=== PATIENT | female | born 1945 | race Caucasian/White ===

== ENCOUNTER 2017-05-06 07:50 | Emergency (ER) | payer MEDICARE, BC ==
[2017-05-06] MEDS ORDERED: Nitroglycerin 0.4 MG TAB (25 Tab Bottle) ONE (07:59)
[2017-05-06] MEDS ORDERED: Ondansetron HCl/PF 4 MG/2 ML Vial ONE (08:15)
[2017-05-06 08:19] LABS: #Basophils 0.1 thou/uL (0.0-0.2); #Eosinphils 0.1 thou/uL (0.0-0.7); #Lymphocytes 1.3 thou/uL (1.20-3.40); #Monocytes 0.4 thou/uL (0.11-0.59); %Basophils 1.2 % (0.0-1.0); %Eosinophils 2.6 % (0.0-10.0); %Lymphocytes 27.2 % (21.0-51.0); %Monocytes 8.2 % (0.0-10.0); %Neutrophils 60.7 % (42.0-75.0); Hemoglobin 14.4 g/dL (12.0-16.0); Mean Corpuscular HGB CONC 34.7 g/dL (32.0-36.0); Mean Corpuscular Hemoglobin 29.8 pg (27.0-31.0); Mean Corpuscular Volume 86.1 fl (81.0-99.0); Mean Platelet Volume 6.5 fL (7.4-10.4); Platelet Count 198 thou/uL (130-400); RBC Distribution Width 12.4 % (11.5-14.5); Red Blood Cell (RBC) Count 4.84 mill/uL (4.20-5.40); White Blood Cell (WBC) Count 4.9 thou/uL (4.8-10.8)
[2017-05-06 08:23] LABS: INR-International Normal Ratio 1.1; PTT 28.5 SEC (22.9-36.1); Prothrombin Time 14.3 SEC (12.0-14.7)
[2017-05-06 08:33] LABS: ALT (SGPT) 55 U/L (8-55); AST (SGOT) 84 U/L (5-34); Albumin 4.3 g/dL (3.4-4.8); Alkaline Phosphatase 115 U/L (40-150); Anion Gap 15 mmol/L (10-20); BUN (Urea Nitrogen) 11 mg/dL (9.8-20.1); Bilirubin, Total 0.9 mg/dL (0.2-1.2); Calc. Creatinine Clearance 0 mL/min (70-130); Calcium 8.9 mg/dL (7.8-10.44); Carbon Dioxide 22 mmol/L (23-31); Chloride 106 mmol/L (98-107); Estimated GFR-MDRD 64; Globulin 2.7 g/dL (2.4-3.5); Glucose 141 mg/dL (83-110); Lipase 28 U/L (8-78); Potassium 4.3 mmol/L (3.5-5.1); Sodium 139 mmol/L (136-145)
[2017-05-06 08:35] LABS: CKMB 1.9 ng/mL (0-6.6); Troponin I Less than 0.010 ng/mL (< 0.028)
--- NOTE | 2017-05-06 19:24 | RAD ---
PORTABLE CHEST 05/06/17 An AP portable film at 0803 is compared with a 04/06/15 study done at [place] in [place]. The patient is turned which distorts the chest somewhat. There does appear to be some streaking in t he lower lobes bilaterally that could be a combination of scarring or atelectasis. Some streaking wa s seen on the 2015 film in the left lower lobe. No large effusions were seen. The upper lobes are cl ear. There does not appear to be vascular congestion or cardiomegaly. IMPRESSION: Bibasilar streaking, much of which may be chronic. If symptoms continue, a followup better centered PA and lateral view might be helpful. POS: HOME
== END 2017-05-06 09:30 | disposition short-term general hospital (02) ==
LOC: BURERS 07:50
DX: A08.4 Viral intestinal infection, unspecified (principal); E78.5 Hyperlipidemia, unspecified; I10 Essential (primary) hypertension; K21.9 Gastro-esophageal reflux disease without esophagitis
CPT/HCPCS: 71010; 80053; 82553; 83690; 84484; 85025; 85610; 85730; 93005; 94760; 96374; J2405

== ENCOUNTER 2021-01-10 09:11 | Inpatient (IN) | payer MEDICARE, BC ==
[2021-01-10 09:46] LABS: Hemoglobin 13.7 g/dL (12.0-16.0); Mean Corpuscular HGB CONC 32.5 g/dL (32.0-36.0); Mean Corpuscular Hemoglobin 29.3 pg (27.0-31.0); Mean Corpuscular Volume 90.1 fL (78.0-98.0); Mean Platelet Volume 7.4 fL (7.4-10.4); Platelet Count 231 thou/uL (130-400); RBC Distribution Width 11.2 % (11.5-14.5); Red Blood Cell (RBC) Count 4.69 mill/uL (4.20-5.40); White Blood Cell (WBC) Count 14.9 thou/uL (4.8-10.8)
[2021-01-10 09:58] LABS: ALT (SGPT) 20 U/L (8-55); AST (SGOT) 23 U/L (5-34); Albumin 3.9 g/dL (3.4-4.8); Alkaline Phosphatase 108 U/L (40-110); Anion Gap 16 mmol/L (10-20); BUN (Urea Nitrogen) 15 mg/dL (9.8-20.1); Calc. Creatinine Clearance 0 mL/min (70-130); Calcium 8.9 mg/dL (7.8-10.44); Carbon Dioxide 23 mmol/L (23-31); Chloride 101 mmol/L (98-107); Globulin 3.3 g/dL (2.4-3.5); Glucose 162 mg/dL (83-110); Protein, Total 7.2 g/dL (5.8-8.1); Sodium 136 mmol/L (136-145)
[2021-01-10 10:03] LABS: Band 31 % (5-11); Lymphocytes 8 % (21-51); MDiff Complete? YES; Monocytes 10 % (0-10); Neutrophil 50 % (42-75); Reactive Lymphocytes 1 % (0-10)
[2021-01-10] MEDS ORDERED: cefTRIAXone\\ROCEPHIN 2 GM VIAL ONE (10:11)
[2021-01-10] MEDS ORDERED: Ondansetron ODT 4 MG TAB PO PRN (11:13)
[2021-01-10] MEDS ORDERED: Ondansetron PF 4 MG/2 ML Vial IVP PRN (11:13)
[2021-01-10] MEDS ORDERED: Acetaminophen 325 MG TAB PO PRN (11:14)
[2021-01-10] MEDS ORDERED: Albuterol Sulfate 2.5 mg/3 ml Neb NEB PRN (11:15)
[2021-01-10 12:12] VITALS: BMI 20.4
[2021-01-10] MEDS: Sodium Chloride 0.45% 1,000 ML IV SCH (12:33)
[2021-01-10] MEDS ORDERED: Bisacodyl 5 MG TAB PO PRN (14:04)
--- NOTE | 2021-01-10 14:09 | RAD ---
PORTABLE CHEST: 01/10/21 An AP portable film at 0945 shows a right lower lobe infiltrate consistent with a developing pneumoni a. The lungs are otherwise clear. There are no large effusions. The heart is normal in size. There is no vascular congestion or edema. Faint calcification is seen in the aortic arch. IMPRESSION: Right lower lobe pneumonia. POS: HOME
--- NOTE | 2021-01-10 15:48 | PDOC.H&P ---
- History & Physical Encounter Time: 01/10/21 75 yo female with 3 week history URI and cough, non-smoker, that developed fever and body aches 2 days ago. [facility]. Here COVID-19 PCR and CXR were both negative, she was diagnosed with cough/bronchitis, and prescribed azithromycin, which she has taken as directed. This morning, she presented to [facility] ER with worsening dyspnea and cough with post-tussive emesis x 1 episode. Her oxygen saturation on room air was 90%, improved to 93% on 2 liters oxygen per cannula. Repeat CXR was positive for developing RLL infiltrate, and so she will be admitted for non-covid Pneumonia. Review of Systems - Review of Systems Constitutional: fever, chills, sweats, weakness, malaise, other ENT: other. negative: ear pain, ear discharge, nose congestion, throat pain Respiratory: cough, shortness of breath, pleuritic pain, sputum Cardiovascular: negative: chest pain, palpitations, orthopnea, edema Gastrointestinal: vomiting. negative: nausea, abdominal pain, diarrhea, constipation Genitourinary: negative: dysuria, frequency, incontinence Skin: negative: rash Neurological: negative: weakness, confusion, seizures - Medications/Allergies Allergies/Adverse Reactions: Allergies Allergy/AdvReac Type Severity Reaction Status Date / Time No Known Drug Allergies Allergy Verified 02/19/20 08:57 Medications: Current Medications
--- NOTE | 2021-01-10 16:50 | PDOC.HHP ---
Hospitalist HPI Cough, Fever History of Present Illness: 75 yo non-smoking female with 3 week history URI and cough developed fever and body aches 2 days ago. She was seen in [facility] on 01/08/21, COVID-19 PCR and CXR were both negative. She was diagnosed with cough/bronchitis, and prescribed azithromycin, which she has taken as directed since. This morning, she presented to [facility] ER with worsening dyspnea, cough, and post-tussive emesis. Her oxygen saturation on room air was 90%, improved to 93% on 2 liters oxygen per cannula. Repeat CXR was positive for developing RLL infiltrate, and so she is admitted for non-covid Pneumonia. 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 Allergies/Adverse Reactions: Allergy/AdvReac Type Severity Reaction Status Date / Time No Known Drug Allergies Allergy Verified 01/10/21 16:59 Home Medications: Medication Instructions Recorded Confirmed Type Atorvastatin Calcium [Lipitor] 10 mg PO QPM 05/06/17 01/10/21 History Amlodipine Besylate [amLODIPine 5 mg PO DAILY 01/10/21 01/10/21 History Besylate] metFORMIN HCl [Metformin HCl] 1 tab PO BID 01/10/21 01/10/21 History Past History: PMHx:DMT2, Hypertension, Hyperlipidemia, GERD PSHx Cholecystectomy, Left ankle repair, Negative Cardiolyte Stress/MPI 05/06/17 FHx:Non-contributory Social: , lives with her in [place], works at a local daycare. Non-smoker, no ETOH, no recreational drugs Hospitalist HPI ROS Constitutional: reports: fever. denies: chills, sweats, weakness, malaise, other ENT: denies: ear pain, nose discharge, nose congestion, throat pain Respiratory: reports: cough, shortness of breath, SOB with excertion, pleuritic pain, sputum Cardiovascular: denies: chest pain, palpitations, orthopnea, paroxysmal noc. dyspnea, edema, light headedness, other Gastrointestinal: reports: vomiting. denies: nausea, abdominal pain, diarrhea, constipation, melena, hematochezia, other Genitourinary: reports: other. denies: dysuria, frequency, incontinence, hematuria, retention Skin: denies: rash, lesions, dioni, bruising, other Neurological: denies: weakness, numbness, incoordination, change in speech, confusion, seizures, other Hospitalist Exam Vitals: Vital Signs (12 hours) Temp Pulse Resp BP Pulse Ox 01/10/21 14:13 62 20 96 01/10/21 14:04 96 01/10/21 11:44 94 L 01/10/21 10:59 97.7 F 82 20 105/53 L 94 L 01/10/21 10:42 97.7 F 82 20 105/53 L 94 L Weight Admit Weight 134 lb 7.712 oz Weight 134 lb 7.712 oz General Appearance: NAD, awake alert Eye: PERRL, anicteric sclera ENT: normocephalic atraumatic, moist mucosa Neck: supple, symmetric, no JVD, no thyromegaly Heart: RRR, no murmur, no gallops, no rubs, normal peripheral pulses Respiratory: no wheezes, normal chest expansion, rales, rhonchi Respiratory - other findings: unlabored room air, bibasilar rhonchi clear partially with loose cough Gastrointestinal: soft, non-tender, non-distended, normal bowel sounds, no palpable masses, no hepatomegaly, no splenomegaly Extremities: no cyanosis, no clubbing, no edema Skin: normal turgor, no lesions, no rashes Neurological: cranial nerve grossly intact Neurological - other findings: normal motor function Musculoskeletal: normal tone, normal strength, no muscle wasting Psychiatric: normal affect, A&O x 3 Hospitalist Results Result Diagrams: 01/10/21 09:30 01/10/21 09:30 Lab results: Laboratory Last Values WBC 14.9 thou/uL (4.8-10.8) H 01/10/21 09:30 RBC 4.69 mill/uL (4.20-5.40) 01/10/21 09:30 Hgb 13.7 g/dL (12.0-16.0) 01/10/21 09:30 Hct 42.3 % (36.0-47.0) 01/10/21 09:30 MCV 90.1 fL (78.0-98.0) 01/10/21 09:30 MCH 29.3 pg (27.0-31.0) 01/10/21 09:30 MCHC 32.5 g/dL (32.0-36.0) 01/10/21 09:30 RDW 11.2 % (11.5-14.5) L 01/10/21 09:30 Plt Count 231 thou/uL (130-400) 01/10/21 09:30 MPV 7.4 fL (7.4-10.4) 01/10/21 09:30 Neutrophils % (Manual) 50 % (42-75) 01/10/21 09:30 Band Neuts % (Manual) 31 % (5-11) H 01/10/21 09:30 Lymphocytes % (Manual) 8 % (21-51) L 01/10/21 09:30 Reactive Lymphs % 1 % (0-10) 01/10/21 09:30 Monocytes % (Manual) 10 % (0-10) 01/10/21 09:30 Lymphocytes # Not Reportable 01/10/21 09:30 Sodium 136 mmol/L (136-145) 01/10/21 09:30 Potassium 4.0 mmol/L (3.5-5.1) 01/10/21 09:30 Chloride 101 mmol/L (98-107) 01/10/21 09:30 Carbon Dioxide 23 mmol/L (23-31) 01/10/21 09:30 Anion Gap 16 mmol/L (10-20) 01/10/21 09:30 BUN 15 mg/dL (9.8-20.1) 01/10/21 09:30 Creatinine 0.97 mg/dL (0.6-1.1) 01/10/21 09:30 Estimated GFR (MDRD) 56 01/10/21 09:30 Glucose 162 mg/dL (83-110) H 01/10/21 09:30 Lactic Acid 1.7 mmol/L (0.5-2.2) 01/10/21 09:30 Calcium 8.9 mg/dL (7.8-10.44) 01/10/21 09:30 Total Bilirubin 1.0 mg/dL (0.2-1.2) 01/10/21 09:30 AST 23 U/L (5-34) 01/10/21 09:30 ALT 20 U/L (8-55) 01/10/21 09:30 Alkaline Phosphatase 108 U/L (40-110) 01/10/21 09:30 Serum Total Protein 7.2 g/dL (5.8-8.1) 01/10/21 09:30 Albumin 3.9 g/dL (3.4-4.8) 01/10/21 09:30 Globulin 3.3 g/dL (2.4-3.5) 01/10/21 09:30 Albumin/Globulin Ratio 1.2 g/dL (1.2-2.2) 01/10/21 09:30 Hospitalist H&P A/P (1) Pneumonia Code(s): J18.9 - PNEUMONIA, UNSPECIFIED ORGANISM Status: Acute Qualifiers: Pneumonia type: due to unspecified organism Laterality: right (2) Hypertension Code(s): I10 - ESSENTIAL (PRIMARY) HYPERTENSION Status: Chronic Qualifiers: Hypertension type: essential hypertension Qualified Code(s): I10 - Essential (primary) hypertension Assessment and Plan: continue Amlodipine, monitor (3) Diabetes mellitus Code(s): E11.9 - TYPE 2 DIABETES MELLITUS WITHOUT COMPLICATIONS Status: Chronic Qualifiers: Diabetes mellitus type: type 2 Diabetes mellitus long wall shear operator insulin use: without long wall shear operator use Diabetes mellitus complication status: without complication Qualified Code(s): E11.9 - Type 2 diabetes mellitus without complications Assessment and Plan: Continue Metformin, Carbohydrate controlled diet Plan: Continue Rocephin, Azithromycin, Albuterol Nebs, consider ICS and/or Oral or IV Steroids depending on patient's progress
[2021-01-10] MEDS: Atorvastatin Calcium 10 MG TAB PO SCH (20:09)
[2021-01-10] MEDS: metFORMIN 500 MG TAB PO SCH (20:09)
[2021-01-10] MEDS: Guaifenesin DM 100-10/5 ML UDCUP PO PRN (22:11)
[2021-01-10] MEDS: Acetaminophen 325 MG TAB PO PRN (22:11)
[2021-01-11] MEDS: Sodium Chloride 0.45% 1,000 ML IV SCH ×2 (00:02→13:29)
[2021-01-11] MEDS: Enoxaparin Sodium 40 MG/0.4 ML SYRINGE SC SCH (09:17)
[2021-01-11] MEDS: Azithromycin 250 MG TAB PO SCH (09:18)
[2021-01-11] MEDS: Amlodipine 5 MG TAB PO SCH (09:18)
[2021-01-11] MEDS: metFORMIN 500 MG TAB PO SCH ×2 (09:18→21:26)
[2021-01-11] MEDS: cefTRIAXone\\ROCEPHIN 1 GM in Sodium Chloride 0.9% 100 ML IVPB SCH (11:56)
--- NOTE | 2021-01-11 13:05 | PDOC.HOSPP ---
- Subjective Encounter Date: 01/11/21 Encounter Time: 10:00 Subjective: Didnt sleep, lots of coughing, cough medication and nebulizers helped some. - Objective Vital Signs & Weight: Vital Signs (12 hours) Temp Pulse Resp BP BP Pulse Ox 01/11/21 10:00 98.4 F 86 20 124/60 97 01/11/21 09:18 84 117/76 01/11/21 08:00 97 01/11/21 06:13 84 20 97 01/11/21 05:54 98.2 F 87 18 117/58 L 95 01/11/21 01:37 97.5 F L 86 20 127/61 95 01/11/21 01:33 86 20 95 Weight Admit Weight 134 lb 7.712 oz Weight 134 lb 7.712 oz I&O: 01/10/21 01/11/21 01/12/21 06:59 06:59 06:59 Intake Total 1860 Balance 1860 Result Diagrams: 01/10/21 09:30 01/10/21 09:30 Radiology Reviewed by me: Yes (RLL infiltrate) Hospitalist ROS - Review of Systems Constitutional: denies: fever, chills, sweats, weakness, malaise, other Respiratory: reports: cough, shortness of breath, pleuritic pain, sputum Cardiovascular: denies: chest pain, palpitations, orthopnea, paroxysmal noc. dyspnea, edema, light headedness, other Gastrointestinal: denies: nausea, vomiting, abdominal pain, diarrhea, constipation Neurological: denies: weakness, numbness, incoordination, change in speech, confusion, seizures, other - Medication Medications: Active Medications Generic Name Dose Route Start Last Admin Trade Name Freq PRN Reason Stop Dose Admin Acetaminophen 650 mg 01/10/21 14:04 01/10/21 22:11 Acetaminophen 325 Mg Tab PO 650 mg Q4H PRN Administration Headache/Fever/Mild Pain (1-3) Albuterol/Ipratropium 3 ml 01/10/21 13:00 01/11/21 06:13 Ipratropium/Albuterol Sulfate 3 Ml Neb NEB 3 ml [id number] EDWIN Administration Amlodipine Besylate 5 mg 01/11/21 09:00 01/11/21 09:18 Amlodipine 5 Mg Tab PO 5 mg DAILY EDWIN Administration Atorvastatin Calcium 10 mg 01/10/21 21:00 01/10/21 20:09 Atorvastatin Calcium 10 Mg Tab PO 10 mg QPM EDWIN Administration Azithromycin 250 mg 01/11/21 09:00 01/11/21 09:18 Azithromycin 250 Mg Tab PO 01/14/21 09:01 250 mg DAILY EDWIN Administration Enoxaparin Sodium 40 mg 01/11/21 09:00 01/11/21 09:17 Enoxaparin Sodium 40 Mg/0.4 Ml Syringe SC 40 mg 0900 EDWIN Administration Guaifenesin/Dextromethorphan 15 ml 01/10/21 14:04 01/10/21 22:11 Guaifenesin Dm 100-10/5 Ml Udcup PO 15 ml Q4H PRN Administration Cough Ceftriaxone Sodium 1 gm/ 100 mls @ 200 mls/hr 01/11/21 11:00 01/11/21 11:56 Sodium Chloride IVPB 100 mls Q24HR EDWIN Administration Metformin HCl 500 mg 01/10/21 21:00 01/11/21 09:18 Metformin 500 Mg Tab PO 500 mg BID EDWIN Administration Sodium Chloride 10 ml 01/10/21 21:00 01/11/21 09:19 Flush - Normal Saline 10 Ml Syringe IVF Not Given Q12HR [facility] Hospitalist Exam Vitals: Vital Signs (12 hours) Temp Pulse Resp BP BP Pulse Ox 01/11/21 10:00 98.4 F 86 20 124/60 97 01/11/21 09:18 84 117/76 01/11/21 08:00 97 01/11/21 06:13 84 20 97 01/11/21 05:54 98.2 F 87 18 117/58 L 95 01/11/21 01:37 97.5 F L 86 20 127/61 95 01/11/21 01:33 86 20 95 Weight Admit Weight 134 lb 7.712 oz Weight 134 lb 7.712 oz General Appearance: awake alert, ill appearing General - other findings: mild exertional dyspnea Eye: PERRL, anicteric sclera ENT: normocephalic atraumatic, moist mucosa Neck: supple, symmetric, no JVD, no thyromegaly, no lymphadenopathy Heart: RRR, no murmur, normal peripheral pulses Respiratory - other findings: course rhonchi throughout, loose cough Gastrointestinal: soft, non-tender, non-distended, normal bowel sounds, no palpable masses, no hepatomegaly, no splenomegaly Extremities: no cyanosis, no clubbing, no edema Skin: normal turgor Neurological: cranial nerve grossly intact, no weakness, no focal deficits Hosp A/P (1) Pneumonia Code(s): J18.9 - PNEUMONIA, UNSPECIFIED ORGANISM Status: Acute Qualifiers: Pneumonia type: due to unspecified organism Laterality: right Lung location: lower lobe of lung Qualified Code(s): J18.9 - Pneumonia, unspecified organism Plan: Solumedrol 40 mg IVP bid, continue nebs, antibiotics (2) Hypertension Code(s): I10 - ESSENTIAL (PRIMARY) HYPERTENSION Status: Chronic Qualifiers: Hypertension type: essential hypertension Qualified Code(s): I10 - Essential (primary) hypertension (3) Diabetes mellitus Code(s): E11.9 - TYPE 2 DIABETES MELLITUS WITHOUT COMPLICATIONS Status: Chronic Qualifiers: Diabetes mellitus type: type 2 Diabetes mellitus medical terminologist insulin use: without skilled nursing use Diabetes mellitus complication status: without complication Qualified Code(s): E11.9 - Type 2 diabetes mellitus without complications
[2021-01-11] MEDS: Atorvastatin Calcium 10 MG TAB PO SCH (21:26)
[2021-01-11] MEDS: methylPREDNISolone Sod Succ/PF 125 MG/2 ML VIAL IVP SCH (21:27)
[2021-01-11] MEDS: Acetaminophen 325 MG TAB PO PRN (21:51)
[2021-01-12] MEDS: methylPREDNISolone Sod Succ/PF 125 MG/2 ML VIAL IVP SCH ×2 (09:44→21:05)
[2021-01-12] MEDS: Enoxaparin Sodium 40 MG/0.4 ML SYRINGE SC SCH (09:45)
[2021-01-12] MEDS: Azithromycin 250 MG TAB PO SCH (09:45)
[2021-01-12] MEDS: metFORMIN 500 MG TAB PO SCH ×2 (09:45→21:03)
[2021-01-12] MEDS: Amlodipine 5 MG TAB PO SCH (09:53)
[2021-01-12] MEDS: cefTRIAXone\\ROCEPHIN 1 GM in Sodium Chloride 0.9% 100 ML IVPB SCH (11:29)
[2021-01-12] MEDS ORDERED: Dextrose 50% Abboject 50 ML SYRINGE SLOW IVP PRN (12:22)
[2021-01-12] MEDS ORDERED: Dextrose 5% in Water 1,000 ML IV PRN (12:22)
--- NOTE | 2021-01-12 14:04 | PDOC.HOSPP ---
- Subjective Encounter Date: 01/12/21 Encounter Time: 13:43 Subjective: Feeling so much better, food is delicious, ready to go home, but agrees to allow additional IV antibiotic doses as indicated. She is sleeping some better, but still coughing when she talks and during Nebulizer treatments, scant clear sputum, drinking lots of water as instructed. (Spoke with patient by phone - exam and in person evaluation deferred due to inclement weather) - Objective Vital Signs & Weight: Vital Signs (12 hours) Temp Pulse Resp BP BP Pulse Ox 01/12/21 13:33 99 18 97 01/12/21 09:53 100 140/69 01/12/21 08:00 97 01/12/21 06:33 88 20 96 01/12/21 06:19 97.7 F 96 20 133/67 96 Weight Admit Weight 134 lb 7.712 oz Weight 134 lb 7.712 oz I&O: 01/11/21 01/12/21 01/13/21 06:59 06:59 06:59 Intake Total 1860 3500 Balance 1860 3500 Result Diagrams: 01/10/21 09:30 01/10/21 09:30 Additional Labs: Accuchecks 01/12/21 01/12/21 13:02 04:05 POC Glucose 183 H 222 H Hospitalist ROS - Review of Systems Constitutional: denies: fever, chills, sweats, weakness, malaise, other Respiratory: reports: shortness of breath, hemoptysis, SOB with excertion, sputum, other. denies: cough, pleuritic pain, wheezing Cardiovascular: reports: other. denies: chest pain, palpitations, orthopnea, edema Gastrointestinal: denies: nausea, vomiting, abdominal pain, diarrhea, constipation Genitourinary: reports: dysuria, frequency, incontinence, hematuria, retention, other Skin: reports: other. denies: rash, lesions, dioni, bruising Neurological: denies: weakness, numbness, incoordination, change in speech, confusion, seizures, other - Medication Medications: Active Medications Generic Name Dose Route Start Last Admin Trade Name Freq PRN Reason Stop Dose Admin Acetaminophen 650 mg 01/10/21 14:04 01/11/21 21:51 Acetaminophen 325 Mg Tab PO 650 mg Q4H PRN Administration Headache/Fever/Mild Pain (1-3) Albuterol/Ipratropium 3 ml 01/10/21 13:00 01/12/21 13:33 Ipratropium/Albuterol Sulfate 3 Ml Neb NEB 3 ml [id number] EDWIN Administration Amlodipine Besylate 5 mg 01/11/21 09:00 01/12/21 09:53 Amlodipine 5 Mg Tab PO 5 mg DAILY EDWIN Administration Atorvastatin Calcium 10 mg 01/10/21 21:00 01/11/21 21:26 Atorvastatin Calcium 10 Mg Tab PO 10 mg QPM EDWIN Administration Azithromycin 250 mg 01/11/21 09:00 01/12/21 09:45 Azithromycin 250 Mg Tab PO 01/14/21 09:01 250 mg DAILY EDWIN Administration Enoxaparin Sodium 40 mg 01/11/21 09:00 01/12/21 09:45 Enoxaparin Sodium 40 Mg/0.4 Ml Syringe SC 40 mg 0900 EDWIN Administration Guaifenesin/Dextromethorphan 15 ml 01/10/21 14:04 01/10/21 22:11 Guaifenesin Dm 100-10/5 Ml Udcup PO 15 ml Q4H PRN Administration Cough Ceftriaxone Sodium 1 gm/ 100 mls @ 200 mls/hr 01/11/21 11:00 01/12/21 11:29 Sodium Chloride IVPB 100 mls Q24HR EDWIN Administration Metformin HCl 500 mg 01/10/21 21:00 01/12/21 09:45 Metformin 500 Mg Tab PO 500 mg BID EDWIN Administration Methylprednisolone Sodium Succinate 40 mg 01/11/21 21:00 01/12/21 09:44 Methylprednisolone Sod Succ/Pf 125 Mg/2 Ml Vial IVP 01/14/21 23:59 40 mg Q12HR EDWIN Administration Sodium Chloride 10 ml 01/10/21 21:00 01/12/21 11:29 Flush - Normal Saline 10 Ml Syringe IVF 10 ml Q12HR EDWIN Administration Hospitalist Exam Vitals: Vital Signs (12 hours) Temp Pulse Resp BP BP Pulse Ox 01/12/21 13:33 99 18 97 01/12/21 09:53 100 140/69 01/12/21 08:00 97 01/12/21 06:33 88 20 96 01/12/21 06:19 97.7 F 96 20 133/67 96 Weight Admit Weight 134 lb 7.712 oz Weight 134 lb 7.712 oz Hosp A/P (1) Pneumonia Code(s): J18.9 - PNEUMONIA, UNSPECIFIED ORGANISM Status: Acute Qualifiers: Pneumonia type: due to unspecified organism Laterality: right Lung location: lower lobe of lung Qualified Code(s): J18.9 - Pneumonia, unspecified organism (2) Hypertension Code(s): I10 - ESSENTIAL (PRIMARY) HYPERTENSION Status: Chronic Qualifiers: Hypertension type: essential hypertension Qualified Code(s): I10 - Essential (primary) hypertension (3) Diabetes mellitus Code(s): E11.9 - TYPE 2 DIABETES MELLITUS WITHOUT COMPLICATIONS Status: Chronic Qualifiers: Diabetes mellitus type: type 2 Diabetes mellitus terminal computer operator insulin use: wi [facility] terminal computer operator use Diabetes mellitus complication status: without compli cation Qualified Code(s): E11.9 - Type 2 diabetes mellitus without compli cations - Plan continue antibiotics, DVT proph w/lovenox Solumedrol 40 mg IVP Q 12 X 4 DOSES STARTED Add bedside glucose monitoring q 12 with Moderate Sliding Scale Regular Insulin Encourage fluids Plan to DC Home Wednesday01/14/2021
[2021-01-12] MEDS ORDERED: Insulin Regular 300 UNITS/3 ML VIAL SC SCH (16:30)
[2021-01-12] MEDS ORDERED: Insulin Regular 300 UNITS/3 ML VIAL SC PRN (18:12)
[2021-01-12] MEDS: Atorvastatin Calcium 10 MG TAB PO SCH (21:03)
[2021-01-13] MEDS ORDERED: Insulin Regular 300 UNITS/3 ML VIAL SC SCH ×2 (07:30→11:30)
[2021-01-13] MEDS ORDERED: metFORMIN 500 MG TAB ONE (07:43)
[2021-01-13] MEDS ORDERED: Enoxaparin Sodium 40 MG/0.4 ML SYRINGE ONE (07:44)
[2021-01-13] MEDS ORDERED: methylPREDNISolone Sod Succ 40 MG VIAL ONE (07:45)
[2021-01-13] MEDS ORDERED: Amlodipine 5 MG TAB ONE (07:45)
[2021-01-13] MEDS ORDERED: cefTRIAXone\\ROCEPHIN 1 GM VIAL ONE (07:46)
[2021-01-13] MEDS: Enoxaparin Sodium 40 MG/0.4 ML SYRINGE SC SCH (09:05)
[2021-01-13] MEDS: methylPREDNISolone Sod Succ/PF 125 MG/2 ML VIAL IVP SCH (09:05)
[2021-01-13] MEDS: Azithromycin 250 MG TAB PO SCH (09:05)
[2021-01-13] MEDS: Amlodipine 5 MG TAB PO SCH (09:05)
[2021-01-13] MEDS: metFORMIN 500 MG TAB PO SCH (09:05)
[2021-01-13] MEDS: Azithromycin 250 MG TAB ONE ×2 (09:30→16:00)
[2021-01-13] MEDS: cefTRIAXone\\ROCEPHIN 1 GM in Sodium Chloride 0.9% 100 ML IVPB SCH (11:24)
[2021-01-13 14:51] LABS: Hemoglobin 11.9 g/dL (12.0-16.0); Red Blood Cell (RBC) Count 4.01 mill/uL (4.20-5.40); White Blood Cell (WBC) Count 12.1 thou/uL (4.8-10.8)
[2021-01-13 14:52] LABS: %Lymphocytes 6.2 % (21.0-51.0); %Monocytes 2.3 % (0.0-10.0); %Neutrophils 91.4 % (42.0-75.0); Manual Diff?? YES; Mean Corpuscular HGB CONC 32.8 g/dL (32.0-36.0); Mean Corpuscular Hemoglobin 29.5 pg (27.0-31.0); Mean Platelet Volume 6.6 fL (7.4-10.4); Platelet Count 260 thou/uL (130-400); RBC Distribution Width 11.5 % (11.5-14.5)
[2021-01-13 14:53] LABS: #Monocytes 0.3 thou/uL (0.11-0.59); %Basophils 0.1 % (0.0-1.0); MDiff Complete? YES
[2021-01-13 14:56] LABS: Anion Gap 17 mmol/L (10-20); BUN (Urea Nitrogen) 17 mg/dL (9.8-20.1); Calc. Creatinine Clearance 65 mL/min (70-130); Carbon Dioxide 19 mmol/L (23-31); Chloride 110 mmol/L (98-107); Glucose 168 mg/dL (83-110); Potassium 3.8 mmol/L (3.5-5.1); Sodium 142 mmol/L (136-145)
[2021-01-13 14:57] LABS: Calcium 9.1 mg/dL (7.8-10.44)
[2021-01-13] MEDS ORDERED: methylPREDNISolone Sod Succ/PF 125 MG/2 ML VIAL IVP SCH (16:30)
[2021-01-13] MEDS: Guaifenesin DM 100-10/5 ML UDCUP PO PRN (16:39)
[2021-01-13 18:27] VITALS: BP 137/63; TEMP 98.2
--- NOTE | 2021-01-13 19:12 | PDOC.DS.DS ---
Provider Date of Admission: 01/10/21 10:35 Date of Discharge: 01/13/21 Admitting Provider: Shahnaz Spangler MD Consultations: None Primary Care Physician: Reddy Graves MD Course Hospital Course: 75 yo female arrived to ER 01/10/21 for 3 day onset fever, chills, and body aches preceeded by 3 week history of cough with worsening dyspnea. The day before her admission she had been seen at [facility] and started on a z-pack. Medical record review confirms both CXR and COVID were both negative yesterday. However repeat CXR in the ER showed developing RLL infliltrate. She was admitted, started on IV Rocephin, continued Azithromycin, given IV Corticosteroids and Duo-Nebs. By day 3 she reports feeling much better and has improved enough to warrant d/c home. Exam/bedside visit deferred due to inclement weather, travel advisory. Patient information obtained by telephone conversation with patient and by nurse report. Resuscitation Status: 01/10/21 10:59 Resuscitation Status Routine Resuscitation Status: FULL: Full Resuscitation Lab Results: 01/13/21 05:00 01/13/21 05:00 Abnormal Lab Results - Last 48 hrs 01/13/21 05:00: WBC 12.1 H, RBC 4.01 L, Hgb 11.9 L, MPV 6.6 L, Neutrophils % 91.4 H, Lymphocytes % 6.2 L, Neutrophils # 11.0 H 01/13/21 05:00: Chloride 110 H, Carbon Dioxide 19 L Microbiology - Entire Visit 01/10/21 08:40 Venous blood - Left Arm Blood Culture - Preliminary NO GROWTH AT 48 HOURS 01/10/21 09:30 Venous blood - Right Arm Blood Culture - Preliminary NO GROWTH AT 48 HOURS Chest x-ray Status: report reviewed by me Additional comments: RLL developing inflitrate, no sign of pulmonary congestion Vitals: Vital Signs (12 hours) Temp Pulse Resp BP Pulse Ox 01/13/21 16:15 98.2 F 96 18 137/63 98 01/13/21 15:57 92 01/13/21 13:25 92 18 96 01/13/21 09:05 97 01/13/21 08:15 96 Weight Admit Weight 134 lb 7.712 oz Weight 134 lb 7.712 oz Physical Exam: The patient was seen and examined on the day of discharge. Problem Assessment: See patient discharge instruction sheet for detailed teaching. Patient verbalizes understanding of medications and is able to verbalize follow-up care. See Discharge Plan for additional discharge information. Patient secured in private vehicle prior to departure. Plan of Treatment: FOCUS: Transition from Acute Care after Discharge GOAL: Successful transition to care in the community YOUR TASKS: (1) review all information outlined in your discharge packet (2) follow any instructions outlined in your discharge packet (3) contact your primary care provider if you have questions or need additional assistance Health Concerns: DMT2, continue DM diet and Metformin, HTN, continue Amlodipine and Atorvastatin (1) Pneumonia Code(s): J18.9 - PNEUMONIA, UNSPECIFIED ORGANISM Status: Acute Qualifiers: Pneumonia type: due to unspecified organism Laterality: right Lung location: lower lobe of lung Qualified Code(s): J18.9 - Pneumonia, unspecified organism (2) Hypertension Code(s): I10 - ESSENTIAL (PRIMARY) HYPERTENSION Status: Chronic Qualifiers: Hypertension type: essential hypertension Qualified Code(s): I10 - Essential (primary) hypertension (3) Diabetes mellitus Code(s): E11.9 - TYPE 2 DIABETES MELLITUS WITHOUT COMPLICATIONS Status: Chronic Qualifiers: Diabetes mellitus type: type 2 Diabetes mellitus half-way insulin use: without exterminator helper termite use Diabetes mellitus complication status: without complication Qualified Code(s): E11.9 - Type 2 diabetes mellitus without complications Plan Prescriptions: ALButerol Sulfate [Ventolin Neb] 2.5 mg NEB Q4H PRN #100 neb PRN Reason: Home Medications: Medication Instructions Recorded Confirmed Type Atorvastatin Calcium [Lipitor] 10 mg PO QPM 05/06/17 01/10/21 History Amlodipine Besylate [amLODIPine 5 mg PO DAILY 01/10/21 01/10/21 History Besylate] metFORMIN HCl [Metformin HCl] 1 tab PO BID 01/10/21 01/10/21 History ALButerol Sulfate [Ventolin Neb] 2.5 mg NEB Q4H PRN #100 neb 01/13/21 Rx Allergies: No Known Drug Allergies Allergy (Verified 01/10/21 16:59) Additional comments: Prescriptions x2 sent to [facility] (from [facility] earlier today as [facility] has been down most of the day): Cefdinir 300 mg bid x 7 days #14 Albut[employer]ol [employer] for Nebulizer q 4-6 prn cough dyspnea, wheeeze Discharge Instructions:: Discharge instructions home: -Activity as tolerated -Diabetic Diet -Resume Home Meds -New prescriptions called into [facility] in [place] by Janet VALDOVINOS -Schedule post hospitalization appointment with Primary Care Physician in 1 week If you have any questions immediately following this hospital discharge, Janet VALDOVINOS has instructed to please call her directly at [phone] Activity:: Activity as Tolerated Nourishment:: Diabetic Diet Therapies:: Not Applicable Equipment/Supplies:: Not Applicable IV Therapy:: Not Applicable Referrals: Reddy Graves MD [Primary Care Provider] - 7 Days Disposition: HOME Quality CORE MEASURES:: N/A
== END 2021-01-13 16:55 | disposition home or self-care (01) | DRG 195 ==
LOC: BURERS 09:11 → BURMED 10:35
PROVIDERS: ADMIT Family Medicine; ATTEND Family Medicine
DX: J15.9 Unspecified bacterial pneumonia (principal); E78.5 Hyperlipidemia, unspecified; E78.00 Pure hypercholesterolemia, unspecified; K21.9 Gastro-esophageal reflux disease without esophagitis; I10 Essential (primary) hypertension; E11.9 Type 2 diabetes mellitus without complications; M10.9 Gout, unspecified; Z90.49 Acquired absence of other specified parts of digestive tract; Z98.890 Other specified postprocedural states; Z90.710 Acquired absence of both cervix and uterus; Z79.84 Long term (current) use of oral hypoglycemic drugs; Z79.899 Other long term (current) drug therapy
CPT/HCPCS: 36415; 36416; 71045; 80053; 83605; 85025; 87040; 94640; 94760; 96365; J0696; J1650; J1815; J2930; J3490; J7620

== ENCOUNTER 2022-03-25 06:05 | Emergency (ER) | payer MEDICARE, BC ==
[2022-03-25 06:55] LABS: Hemoglobin 14.1 g/dL (12.0-16.0); Mean Corpuscular HGB CONC 34.5 g/dL (32.0-36.0); Mean Corpuscular Hemoglobin 30.5 pg (27.0-31.0); Mean Corpuscular Volume 88.2 fL (78.0-98.0); Mean Platelet Volume 6.6 fL (7.4-10.4); Platelet Count 171 thou/uL (130-400); RBC Distribution Width 11.7 % (11.5-14.5); Red Blood Cell (RBC) Count 4.63 mill/uL (4.20-5.40); White Blood Cell (WBC) Count 8.4 thou/uL (4.8-10.8)
[2022-03-25 07:01] LABS: ALT (SGPT) 18 U/L (8-55); AST (SGOT) 33 U/L (5-34); Albumin 3.9 g/dL (3.4-4.8); Alkaline Phosphatase 71 U/L (40-110); Anion Gap 18 mmol/L (10-20); BUN (Urea Nitrogen) 20 mg/dL (9.8-20.1); Bilirubin, Total 0.9 mg/dL (0.2-1.2); CK (CPK) 373 U/L (29-168); Calc. Creatinine Clearance 0 mL/min (70-130); Calcium 8.9 mg/dL (7.8-10.44); Carbon Dioxide 22 mmol/L (23-31); Chloride 102 mmol/L (98-107); Globulin 3.1 g/dL (2.4-3.5); Glucose 155 mg/dL (83-110); Potassium 3.5 mmol/L (3.5-5.1); Sodium 138 mmol/L (136-145)
[2022-03-25] MEDS ORDERED: cefTRIAXone\\ROCEPHIN 1 GM VIAL ONE (07:09)
[2022-03-25 07:19] LABS: CKMB 2.1 ng/mL (0-6.6)
[2022-03-25 07:20] LABS: Band 13 % (5-11); Lymphocytes 6 % (21-51); MDiff Complete? YES; Monocytes 4 % (0-10); Neutrophil 77 % (42-75); Platelet Morphology Comment Appears Adequate; RBC Morphology Normal
[2022-03-25 08:20] LABS: Bilirubin Small (Negative); Blood, Urine Moderate (Negative); Clarity Clear (Clear); Glucose, Urine (Dipstick) Negative (Negative); Ketone, Urine 40 mg/dL (Negative); Leukocyte Negative (Negative); Nitrite Negative (Negative); Protein, Urine (Dipstick) > or equal to 300 mg/dL (Neg-Trace); Specific Gravity, Urine 1.025 (1.005-1.030); Urobilinogen 0.2 mg/dL (Less than 2); pH, Urine 5.5 (5.0-9.0)
[2022-03-25 08:26] LABS: SARS-CoV-2 NAA Rapid Test Not Detected (NotDetected)
[2022-03-25 08:43] LABS: Bacteria/HPF Rare-Few HPF (None Seen); RBC/HPF 0-3 HPF (0-3); Squamous Epithelial 0-3 HPF (0-3); WBC/HPF 0-3 HPF (0-3)
== END 2022-03-25 09:34 | disposition short-term general hospital (02) ==
LOC: BURERS 06:05
DX: J10.00 Influenza due to other identified influenza virus with unspecified type of pneumonia (principal); R79.89 Other specified abnormal findings of blood chemistry; Z20.822 Contact with and (suspected) exposure to COVID-19; K21.9 Gastro-esophageal reflux disease without esophagitis; E78.5 Hyperlipidemia, unspecified; I10 Essential (primary) hypertension; Z79.899 Other long term (current) drug therapy; Z79.82 Long term (current) use of aspirin; Z79.84 Long term (current) use of oral hypoglycemic drugs
CPT/HCPCS: 36415; 71045; 80053; 81003; 81015; 82550; 82553; 83605; 83880; 84484; 85025; 87040; 87086; 87804; 93005; 94760; 96374; J0696; J7620; U0002